=== PATIENT | female | born 1990 | race Two or more races ===

== ENCOUNTER 2019-09-14 05:36 | Emergency (ER) | payer MEDICAID ==
[~2019-09-14] VITALS: Ht 157.5 cm; Wt 73.0 kg
[2019-09-14] MEDS ORDERED: MAGNESIUM/ALUMINUM HYDROXIDE/SIMETHICONE 30ML UDC PO STA (07:54)
[2019-09-14] MEDS ORDERED: DICYCLOMINE 10 MG/5 ML ORAL SYR PO STA (07:54)
[2019-09-14] MEDS ORDERED: VISCOUS LIDOCAINE 2% 15 ML UDC PO STA (07:54)
[2019-09-14] MEDS ORDERED: FAMOTIDINE 20MG/2ML VIAL IV STA (07:54)
[2019-09-14 08:24] LABS: BASOPHILS % 0.4 % (0.0-2.0); EOSINOPHILS % 0.6 % (0.0-5.0); HEMATOCRIT. 39.8 % (36.0-48.0); HEMOGLOBIN. 13.4 g/dL (12.0-16.0); LYMPHOCYTES % 18.4 % (20.0-50.0); MEAN CORPUSCULAR HEMOGLOBIN 31.3 pg (28.0-32.0); MEAN CORPUSCULAR VOLUME 93.1 fL (81.0-99.0); MEAN PLATELET VOLUME 11.8 fl (7.4-10.4); MONOCYTES % 5.1 % (2.0-8.0); NEUTROPHILS % 75.5 % (40.0-76.0); PLATELET 203 x1000/uL (130-400); RED BLOOD CELL COUNT 4.27 mill/uL (4.2-5.4); RED CELL DISTRIBUTION WIDTH 13.4 % (11.6-14.6)
[2019-09-14 08:27] LABS: CHLORIDE 111 mEq/L (98-107)
[2019-09-14] MEDS ORDERED: ONDANSETRON HCL 4MG/2ML INJ IV STA (08:34)
[2019-09-14] MEDS ORDERED: KETOROLAC 30MG/ML VIAL IV ONE (08:45)
[2019-09-14] MEDS ORDERED: SODIUM CHLORIDE 0.9% 1,000 ML IV ONE (09:08)
[2019-09-14 10:43] VITALS: BP 123/70
== END 2019-09-14 10:56 | disposition home or self-care (01) ==
LOC: ER 06:06
DX: R11.2 Nausea with vomiting, unspecified (principal); F12.10 Cannabis abuse, uncomplicated
CPT/HCPCS: 36415; 80053; 81025; 83690; 85025; 96361; 96374; 96375; 99284; J1885; J2405; J3490; J7030; Z7610